=== PATIENT | female | born 1960 | race Caucasian/White ===

== ENCOUNTER 2019-03-05 18:18 | Emergency (ER) | payer OTHER ==
[~2019-03-05] VITALS: Ht 152.4 cm; Wt 86.2 kg
[~2019-03-05 18:18] MED LIST: ALBUTEROL SULF8.5 GM INH; AMLODIPINE BES2.5 MG PO; AMOXICILLIN875 MG PO; AUGMENTIN 875-1 EACH PO; CRESTOR10 MG PO; CYMBALTA60 MG PO; GUAIATUSSIN AC10 ML PO; HYZAAR 100-251 EACH PO; INDERAL LA160 MG PO; KLOR-CON M2020 MEQ PO; LOSARTAN-HCTZ1 EAC1 PO; METOPROLOL TART25 MG PO; MULTI-VITAMIN1 EACH PO; NORCO 10-325 T1 EACH PO; NORCO 5-325 TA1 EACH PO; OMEPRAZOLE20 MG PO; PREDNISONE20 MG PO; ULTRAM50 MG PO; VENTOLIN HFA18 GM INH; ZESTRIL10 MG PO
[2019-03-05] MEDS ORDERED: METFORMIN HCL500 MG PO (20:10)
[2019-03-05] MEDS ORDERED: POTASSIUM CHLO10 ME1 PO (20:11)
[2019-03-05] MEDS ORDERED: DOXAZOSIN MESYLA2 MG PO (20:11)
[2019-03-05] MEDS ORDERED: LOSARTAN POTAS100 MG PO (20:11)
[2019-03-05] MEDS ORDERED: NORCO 5-325 TA1 EACH PO (20:53)
== END 2019-03-05 21:25 | disposition home or self-care (01) ==
LOC: ED 18:18
DX: T14.8XXA Other injury of unspecified body region, initial encounter (principal); M25.552 Pain in left hip; M25.512 Pain in left shoulder; M54.2 Cervicalgia; I10 Essential (primary) hypertension; E11.9 Type 2 diabetes mellitus without complications; G43.909 Migraine, unspecified, not intractable, without status migrainosus; J45.909 Unspecified asthma, uncomplicated; Z79.899 Other long term (current) drug therapy; Z79.51 Long term (current) use of inhaled steroids; Z79.84 Long term (current) use of oral hypoglycemic drugs; V49.9XXA Car occupant (driver) (passenger) injured in unspecified traffic accident, initial encounter
CPT/HCPCS: 70486; 71046; 72125; 73502; 96372; 99284-25; J1885

== ENCOUNTER 2020-12-09 06:22 | Emergency (ER) | payer OTHER ==
[~2020-12-09] VITALS: Ht 165.1 cm; Wt 88.0 kg
[~2020-12-09 06:22] MED LIST changes: +DOXAZOSIN MESYLA2 MG PO; +LOSARTAN POTAS100 MG PO; +METFORMIN HCL500 MG PO; +POTASSIUM CHLO10 ME1 PO
[2020-12-09] MEDS ORDERED: HYDROCODON-ACE1 EA10 PO (08:17)
== END 2020-12-09 08:39 | disposition home or self-care (01) ==
LOC: ED 06:22
DX: M54.50 Low back pain, unspecified (principal); E78.00 Pure hypercholesterolemia, unspecified; G43.909 Migraine, unspecified, not intractable, without status migrainosus; I10 Essential (primary) hypertension; M19.90 Unspecified osteoarthritis, unspecified site; J45.909 Unspecified asthma, uncomplicated; E11.9 Type 2 diabetes mellitus without complications; Z79.899 Other long term (current) drug therapy
CPT/HCPCS: 72100; 72110; 81001; 99283; A9270

== ENCOUNTER 2023-12-19 07:15 | Emergency (ER) | payer OTHER, BC ==
[~2023-12-19] VITALS: Ht 165.1 cm; Wt 91.0 kg
[~2023-12-19 07:15] MED LIST changes: +HYDROCODON-ACE1 EA10 PO
[2023-12-19 07:51] LABS: BASOPHILS 1.1 % (0-2); EOSINOPHILS 1.2 % (0-6); HEMATOCRIT 38.1 % (35.0-50.0); LYMPHOCYTES 25.4 % (24-44); MCH 29.3 (27-36); MCHC 34.3 g/dl (30-36); MCV 85.4 fl (81-99); MONOCYTES 9.3 % (0-12); PLATELET COUNT 382 K/uL (140-440); RBC 4.46 M/ul (4.3-5.7)
[2023-12-19 07:51] LABS: BILIRUBIN, URINE POSITIVE (negative); BLOOD/HGB, URINE TRACE-I (Negative); KETONE, URINE SMALL (Negative); LEUK ESTERASE, URINE TRACE (negative); NITRITE, URINE NEGATIVE (negative)
[2023-12-19 08:00] LABS: BACTERIA, URINE NONE SEEN /hpf (negative); CASTS, URINE NONE SEEN \\lpf; CRYSTALS, URINE AMORPHOUS PHOSPH 4+ (0-1+); EPITHELIAL CELLS, URINE 0 /lpf (0-1+)
[2023-12-19 08:01] LABS: COLLECTION TYPE, URINE CLEAN CATCH; REFLEX CULTURE, URINE No (No)
[2023-12-19 08:11] LABS: ALBUMIN 3.8 g/dL (3.4-5.0); ALBUMIN/GLOBULIN RATIO 1.06 (1.1-2.4); BILIRUBIN, TOTAL 0.4 ng/dL (0.2-1.0); BUN/CREATININE RATIO 11.88 (6.0-28.6); CALCIUM 9.8 mg/dL (8.5-10.1); CREATININE, SERUM 1.01 mg/dL (0.55-1.02); PROTEIN, TOTAL 7.4 g/dL (6.4-8.2)
[2023-12-19] MEDS ORDERED: MAGNESIUM SULFATE 2 GM/50 ML BAG IV ONE (09:00)
[2023-12-19] MEDS ORDERED: SODIUM CHLORIDE 0.9% 1,000 ML IV PRN (09:00)
[2023-12-19] MEDS ORDERED: POTASSIUM CHLORIDE 10 MEQ TABCR PO ONE (11:15)
[2023-12-19] MEDS ORDERED: ondansetron HCL 4 MG/2 ML VIAL IV ONE (11:15)
[2023-12-19] MEDS ORDERED: ONDANSETRON ODT4 MG PO (11:43)
[2023-12-19 13:07] VITALS: BP 141/63
== END 2023-12-19 13:07 | disposition home or self-care (01) ==
LOC: ED 07:15
PROVIDERS: Emergency Medicine
DX: R11.2 Nausea with vomiting, unspecified (principal); R19.7 Diarrhea, unspecified; E87.6 Hypokalemia; E83.42 Hypomagnesemia; E86.0 Dehydration; E78.00 Pure hypercholesterolemia, unspecified; E11.9 Type 2 diabetes mellitus without complications; I10 Essential (primary) hypertension; J45.909 Unspecified asthma, uncomplicated; G43.909 Migraine, unspecified, not intractable, without status migrainosus; Z79.84 Long term (current) use of oral hypoglycemic drugs; Z79.899 Other long term (current) drug therapy
CPT/HCPCS: 36415; 80053; 81001; 83690; 83735; 85025; 96365; 96375; 99284-25; A9270; J2405; J3475; J7030